=== PATIENT | male | born 1985 | race Two or more races ===

== ENCOUNTER 2019-03-20 18:00 | Emergency (ER) | payer OTHER ==
[~2019-03-20] VITALS: Ht 170.2 cm; Wt 70.3 kg
[~2019-03-20 18:00] MED LIST: NKM
[2019-03-20 18:17] VITALS: BP 123/81
--- NOTE | 2019-03-20 18:17 | NUR ---
ED Nurse Note: Pt ambulated to ED d/t presence of blood in the stools on-off since early March; and intermittent pain on lower abdominal quadrant. Pt is AOx4, calm and cooperative. Per pt pain was severe SOLICITOR PATENT. VSS, on RA. Placed on bed and gown. Will continue to monitor.
--- NOTE | 2019-03-20 18:42 | Emergency Room Report ---
History of Present Illness General Chief Complaint: Gastrointestinal Bleed Source: Patient Present Illness HPI Patient presents with complaints of mid and lower abdominal pain ongoing for the past several days Patient reports that he initially had seen red blood per rectum Now appears to be more dark in nature Denies any vomiting denies any chest pain or shortness of breath patient has history of previous Giardia Which was diagnosed and treated which had similar symptoms patient reports recent overdose on cocaine in the beginning of the month Which she had seizures for otherwise denies any headache at this time denies any fevers denies any recent travel Allergies: Coded Allergies: No Known Allergies (Unverified , 05/17/15) Patient History Past Medical History: see triage record Reviewed Nursing Documentation: PMH: Agreed; PSxH: Agreed Nursing Documentation-PMH Past Medical History: No History, Except For Hx Cardiac Problems: No Hx Cancer: No Hx Gastrointestinal Problems: Yes - giardia Hx Neurological Problems: No 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 Review of Systems All Other Systems: negative except mentioned in HPI Physical Exam Vital Signs Date Time Temp Pulse Resp B/P (MAP) Pulse Ox O2 Delivery O2 Flow Rate FiO2 03/20/19 18:12 98.8 73 20 123/81 (95) 98 Room Air Sp02 EP Interpretation: reviewed, normal General Appearance: well appearing, no apparent distress Head: normocephalic, atraumatic Eyes: bilateral eye PERRL, bilateral eye EOMI ENT: hearing grossly normal, normal pharynx, TMs + canals normal, uvula midline Neck: full range of motion, supple, no meningismus, no bony tend Respiratory: lungs clear, normal breath sounds, no rhonchi, no respiratory distress, no retraction, no accessory muscle use Cardiovascular #1: normal peripheral pulses, regular rate, rhythm, no edema, no gallop, no JVD, no murmur Gastrointestinal: normal bowel sounds, non tender - On exam however patient points to the umbilical and just below the umbilical area for most of the discomfort, soft, no mass, no organomegaly, non-distended, no guarding, no hernia, no pulsatile mass, no rebound Genitourinary: no CVA tenderness Musculoskeletal: normal inspection Neurologic: motor strength/tone normal, 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 -Otherwise no acute abnormality definitively identified to account for patient presentation. -Otherwise unremarkable study. Last Vital Signs Date Time Temp Pulse Resp B/P (MAP) Pulse Ox O2 Delivery O2 Flow Rate FiO2 03/20/19 18:12 98.8 73 20 123/81 (95) 98 Room Air Nedra Suggs DO Mar 20, 2019 18:42
[2019-03-20] MEDS ORDERED: Ketorolac 30mg Inj IV ONE (18:45)
[2019-03-20] MEDS ORDERED: Omnipaque-300 100ml vial INJ PRN (18:45)
[2019-03-20 18:47] LABS: BASOPHILS % (AUTO) 0.8 % (0.0-2.0); EOSINOPHILS % (AUTO) 1.6 % (0.0-3.0); HEMATOCRIT 42.4 % (42.0-52.0); HEMOGLOBIN 14.5 G/DL (14.2-18.0); LYMPHOCYTES % (AUTO) 16.5 % (20.0-45.0); MEAN CORPUSCULAR VOLUME 93 FL (80-99); MONOCYTES % (AUTO) 9.8 % (1.0-10.0); NEUTROPHILS % (AUTO) 71.2 % (45.0-75.0); PLATELET COUNT 272 K/UL (150-450); RED BLOOD COUNT 4.58 M/UL (4.70-6.10); RED CELL DISTRIBUTION WIDTH 11.7 % (11.6-14.8); WHITE BLOOD COUNT 12.1 K/UL (4.8-10.8)
--- NOTE | 2019-03-20 19:10 | NUR ---
HAND-OFF: Report given to Ailyn PRESTON.
[2019-03-20 19:14] LABS: ANION GAP 11 mmol/L (5-15); BLOOD UREA NITROGEN 11 mg/dL (7-18); CALCIUM 8.8 MG/DL (8.5-10.1); CARBON DIOXIDE 25 MMOL/L (21-32); CHLORIDE 100 MMOL/L (98-107); CREATININE 1.1 MG/DL (0.55-1.30); POTASSIUM 4.1 MMOL/L (3.5-5.1); SODIUM 136 MMOL/L (136-145)
[2019-03-20 19:18] LABS: ALANINE AMINOTRANSFERASE 30 U/L (12-78); ALBUMIN 3.5 G/DL (3.4-5.0); ALBUMIN/GLOBULIN RATIO 0.9 (1.0-2.7); ALKALINE PHOSPHATASE 83 U/L (46-116); ASPARTATE AMINO TRANSFERASE 22 U/L (15-37); BILIRUBIN,TOTAL 0.3 MG/DL (0.2-1.0)
--- NOTE | 2019-03-20 19:35 | NUR ---
ED Nurse Note: Recieved report from am nurse to resume care, pt is in imaging department for ct-scan, family at bedside, will resume pt care when he returns to department.
[2019-03-20 19:50] VITALS: BP 129/74
--- NOTE | 2019-03-20 19:55 | NUR ---
ED Nurse Note: Pt returned from imaging, pt is awake, alert and oriented x 4, pt is ambulatory,d eneis pain, meds given for portia ffective, rates at 0/10 now, pt replaced on cardiac monitoring, has patent saline lock in right ac, v/s stable, deneis cp, sob or humberto other complaitns, will resume care as rodered and continue to [facility] monitor.
--- NOTE | 2019-03-20 19:57 | Diagnostic Imaging Report ---
Clinical Indication: Mid and lower abdominal pain ongoing for the past several days Technique: No oral contrast utilized, per emergency room physician request IV administration nonionic contrast. Venous phase spiral acquisition obtained through the abdomen and pelvis. Multiplanar reconstructions were generated. Total dose length product 995 mGycm. CTDIvol(s) 17 mGy. Dose reduction achieved using automated exposure control Comparison: none Findings: Proximal small bowel demonstrates mildly prominent in caliber and somewhat thickened enhancing wall. Distal small bowel loops are fluid-filled, per limits of normal in caliber. The appendix is not visualized, but no findings to suggest acute appendicitis are evident. No free or loculated intraperitoneal gas or fluid is evident. No evidence of colonic diverticulosis or diverticulitis. The liver, gallbladder, bile ducts, pancreas, spleen, adrenals, kidneys are all unremarkable. No retroperitoneal or mesenteric mass or adenopathy. No pelvic mass or adenopathy. The included lung bases are clear. The bones are unremarkable. Impression: Prominent fluid-filled small bowel loops, with prominent mural enhancement of the jejunum could indicate enteritis changes. No other significant abnormality. This agrees with the preliminary interpretation provided overnight by [facility] service. The CT scanner at [facility] is accredited by the [employer] and the scans are performed using protocols designed to limit radiation exposure to as low as reasonably achievable to attain images of sufficient resolution adequate for diagnostic evaluation.
[2019-03-20] MEDS ORDERED: DICYCLOMINE HCL10 MG ORAL (20:18)
[2019-03-20] MEDS ORDERED: METRONIDAZOLE500 MG ORAL (20:18)
[2019-03-20 20:45] VITALS: BP 127/68
--- NOTE | 2019-03-20 20:45 | NUR ---
ER DISCHARGE NOTE: Patient is cleared to be discharged per ERMD, pt is aox4, on room air, with stable vital signs. pt was given dc and prescription instructions, pt was able to verbalize understanding, pt id band and iv site removed without complications. pt is able to ambulate with steady gait. pt took all belongings.
[2019-03-20 21:00] VITALS: BP 127/68
== END 2019-03-20 21:05 | disposition home or self-care (01) ==
LOC: EMR 21:05
DX: R10.30 Lower abdominal pain, unspecified (principal)
CPT/HCPCS: 36415; 74177; 80053; 83690; 85025; 96361; 96365; 96375; 99284; J1885; J7030; Q9967